=== PATIENT | female | born 1950 | race Caucasian/White ===

== ENCOUNTER 2017-03-18 15:47 | Outpatient (CLI) | payer MEDICARE, OTHER | END 2017-03-18 16:00 | disposition home or self-care (01) | LOC: SLEEP 15:47 | PROVIDERS: ATTEND Nurse Practitioner | DX: G47.10 Hypersomnia, unspecified (principal) ==

== ENCOUNTER → 2017-07-23 | Outpatient (CLI) | payer MEDICARE, OTHER ==
--- NOTE | 2017-07-23 14:54 | Diagnostic Imaging Report ---
Indication: Routine screening. Comparison is made with prior mammogram from 04/15/2006. The current study was also evaluated with a Computer Aided Detection (CAD) system. Scattered parenchymal densities are identified bilaterally. No dominant mass or malignant appearing microcalcifications are seen. The axillae are unremarkable. IMPRESSION: BI-RADS category 1. No mammographic features suspicious for malignancy are identified. ACR BI-RADS Category 1: Negative. Result letter will be mailed to the patient. Note: At least 10% of breast cancer is not imaged by mammography. Dictated by: Dictated on workstation # [id number]
== END ==
LOC: RAD 11:17
PROVIDERS: ATTEND Family Medicine
DX: Z12.31 Encounter for screening mammogram for malignant neoplasm of breast (principal)
CPT/HCPCS: 77067

== ENCOUNTER → 2018-04-02 | Outpatient (CLI) | payer MEDICARE, OTHER ==
--- NOTE | 2018-04-02 12:44 | Diagnostic Imaging Report ---
PROCEDURE: MRI lumbar spine. TECHNIQUE: Multiplanar, multisequence MRI of the lumbar spine was performed without contrast. INDICATION: Low back pain. COMPARISON: There are no prior studies available for comparison. FINDINGS: The T2 sagittal images reveal that there is a grade 1 spondylolisthesis of L4 with respect to L5. There is also desiccation of the disc at this level, although the disc space is fairly well maintained. The thecal sac is narrowed however and the AP diameter of the thecal sac is estimated to be only 7.7 mm. There is also moderate narrowing of the neuroforamen bilaterally at this level. At the L5-S1, there is also focal disc bulge centrally. The disc indents the ventral aspect of the thecal sac and narrows the AP diameter to 10.1 mm. There is no significant neuroforaminal narrowing at this level. There is desiccation of the discs at every other level of the lumbar spine but the disc spaces are fairly well maintained. The thecal sac is generous and there is no evidence for spinal stenosis or nerve root encroachment at any other level. There is no abnormal signal arising from the cord or other vertebral bodies to indicate an acute abnormality. There is no evidence for a paraspinal mass. IMPRESSION: 1. There is a grade 1 spondylolisthesis of L4 with respect to L5. This does result in spinal stenosis at the L4-L5 level as well as moderate narrowing of the neuroforamen bilaterally. 2. There is also a disc bulge centrally at L5-S1. There is borderline central stenosis at this level but there is no encroachment of the nerve roots. 3. The remainder of the lumbar spine is unremarkable for spinal stenosis or nerve root encroachment. 4. There is no sign of an acute bony abnormality or of a cord lesion. Dictated by: Dictated on workstation # [id number]
== END ==
LOC: RAD 10:43
PROVIDERS: ATTEND Family Medicine
DX: M48.061 Spinal stenosis, lumbar region without neurogenic claudication (principal); M43.16 Spondylolisthesis, lumbar region; M99.73 Connective tissue and disc stenosis of intervertebral foramina of lumbar region; M51.26 Other intervertebral disc displacement, lumbar region
CPT/HCPCS: 72148

== ENCOUNTER 2018-06-10 15:21 | Outpatient (RCR) | payer MEDICARE, OTHER | END 2018-07-22 14:06 | disposition home or self-care (01) | PROVIDERS: ATTEND Nurse Practitioner | DX: M54.16 Radiculopathy, lumbar region (principal) ==

== ENCOUNTER 2018-06-12 15:58 | Outpatient (RCR) | payer MEDICARE, OTHER | END 2018-06-19 | disposition home or self-care (01) | LOC: CR3 15:58 | PROVIDERS: ATTEND Family Medicine | DX: Z29.8 Encounter for other specified prophylactic measures (principal) ==

== ENCOUNTER 2018-07-27 16:17 | Outpatient (RCR) | payer MEDICARE, OTHER | END 2018-07-29 | disposition home or self-care (01) | LOC: CR3 16:17 | PROVIDERS: ATTEND Family Medicine | DX: Z29.8 Encounter for other specified prophylactic measures (principal) ==

== ENCOUNTER 2018-08-24 16:04 | Outpatient (RCR) | payer MEDICARE, OTHER | END 2018-09-02 | disposition home or self-care (01) | LOC: CR3 16:04 | PROVIDERS: ATTEND Family Medicine | DX: Z29.8 Encounter for other specified prophylactic measures (principal) ==

== ENCOUNTER → 2019-05-06 | Outpatient (CLI) | payer MEDICARE, OTHER ==
--- NOTE | 2019-05-06 18:23 | Diagnostic Imaging Report ---
INDICATION: Routine screening. COMPARISON: Comparison is made with prior mammogram from 07/23/2017. TECHNIQUE: 2-D and 3-D bilateral screening mammography was performed. The current study was also evaluated with a Computer Aided Detection (CAD) system. 3-D tomosynthesis was also performed and reviewed. FINDINGS: Scattered fibroglandular densities are identified bilaterally. Benign-appearing nodules are noted in both breasts. No spiculated mass or malignant-appearing microcalcifications are seen. Axillae are unremarkable. IMPRESSION: No mammographic features suspicious for malignancy are identified. ACR BI-RADS Category 2: Benign findings. Result letter will be mailed to the patient. Note: At least 10% of breast cancer is not imaged by mammography. Dictated by: Dictated on workstation # [id number]
== END ==
LOC: RAD 10:54
PROVIDERS: ATTEND Family Medicine
DX: Z12.31 Encounter for screening mammogram for malignant neoplasm of breast (principal)
CPT/HCPCS: 77067

== ENCOUNTER 2019-06-17 15:54 | Emergency (ER) | payer MEDICARE, OTHER ==
[~2019-06-17] VITALS: Ht 167 cm; Wt 106.5 kg
[~2019-06-17 15:54] MED LIST: ATOR10TA PO; CEFD300C3 PO; FLUC150T PO; IPRA3AMP31 IH; L.AC1CAP6 PO; MV M PO; PRD10T PO; RT-ALBUINH INH
--- NOTE | 2019-06-17 18:00 | NUR ---
TALKED WITH PT WHO STATES HER EPISODE IS OVER AND SHE IS NOW TALKING IN HER REGULAR VOICE. NOTIFIED OF CONTINUED BUSY ER ET A PROVIDER WOULD BE IN TO SEE HER WHEN THEY COULD.
--- NOTE | 2019-06-17 18:53 | NUR ---
Received report from ADWOA Stephenson at this time to assume care of pt.
--- NOTE | 2019-06-17 18:57 | Diagnostic Imaging Report ---
INDICATION: Dyspnea. PA and lateral views of the chest are obtained with comparison made to previous study of 05/18/2019. FINDINGS: Heart size and pulmonary vascularity are within normal limits, and the lungs are clear, bilaterally. There is asymmetric increased density in the right humeral head. IMPRESSION: No acute abnormality is seen in the chest, although there is increasing density in the right humeral head. If there is pain in this region, consideration could be given to dedicated right humeral exam. Dictated by: Dictated on workstation # [id number]
--- NOTE | 2019-06-17 20:21 | ED Respiratory ---
General Chief Complaint: Respiratory Problems Stated Complaint: CONGESTED,COUGH Nursing Triage Note: DISCHARGED FROM THE HOSPITAL AFTER THANKSGIVING FOR RESP ISSUES. STATES TODAY SHE HAS BEEN MORE SOA AND HER VOICE IS HOARSE. Source: family, old records Exam Limitations: no limitations History of Present Illness Date Seen by Provider: Jun 17, 2019 Time Seen by Provider: 18:04 Initial Comments This 69-year-old woman presents to the emergency room today with complaints of shortness of breath. She went to Dr[facility] and was directed to the emergency room. She reports the episode has now passed. She did use a nebulizer treatment at home. She reports having a foul smell in her nose after coughing up sputum. She has been on multiple rounds of antibiotics and prednisone and the last year. She finished her last round 10-12 days ago. She reports being able to exercise for 40 minutes this morning without difficulty. She denies any chest pain or palpitations. She had an admission to the hospital this fall for a COPD exacerbation. Allergies and Home Medications Allergies Coded Allergies: Fish Containing Products (Verified Allergy, Unknown, Abdominal Pain, 05/18/19) PATIENT REPORTS UPSET STOMACH WHEN EATING FISH OR ANY FISH FOODS CONTAINING FISH PRODUCTS Home Medications Albuterol Sulfate 1 Puff Puff, 2 PUFF INH Q4H PRN for SHORTNESS OF BREATH, (Reported) 1 PUFF = 90 MCG Atorvastatin Calcium 10 Mg Tablet, 10 MG PO HS Prescribed by: FLORI ECKERT on 05/19/19 140 Cefdinir 300 Mg Capsule, 300 MG PO BID, (Reported) 7 DAY SUPPLY FILLED 05-12-19 Fluconazole 150 Mg Tablet, 150 MG PO ONCE Prescribed by: FLORI ECKERT on 05/19/19 140 Ipratropium/Albuterol Sulfate 3 Ml Ampul.neb, 3 ML IH TID Prescribed by: FLORI ECKERT on 05/19/19 140 L.acidoph & Paracasei,B.lactis 1 Each Capsule, 1 CAP PO DAILY, (Reported) Mv-Mn/Folic/Wes/Vit K/B Comp,C 1 Each Tablet, 1 TAB PO DAILY, (Reported) Prednisone 10 Mg Tab, PO UD, (Reported) TAKE 2 TABS 2X DAILY X 2 DAYS THEN TAKE 1 TAB 3X DAILY X 2 DAYS THEN TAKE 1 TAB 2X DAILY X 2 DAYS THEN TAKE 1 TAB DAILY THEREAFTER #20 TABS FILLED 05-17-19 Patient Home Medication List Home Medication List Reviewed: Yes Review of Systems Review of Systems Constitutional: no symptoms reported EENTM: no symptoms reported Respiratory: see HPI Cardiovascular: no symptoms reported Gastrointestinal: no symptoms reported Genitourinary: no symptoms reported : No Musculoskeletal: no symptoms reported Skin: no symptoms reported Psychiatric/Neurological: No Symptoms Reported Hematologic/Lymphatic: No Symptoms Reported Past Wowqotr-Fjvpze-Gvylwd Hx Past Med/Social Hx: Reviewed Nursing Past Med/Soc Hx Patient Social History Alcohol Use: Occasionally Uses Number of Drinks Today: AA Alcohol Beverage of Choice: Beer Recreational Drug Use: No Smoking Status: Former Smoker Type Used: Cigarettes Former Smoker, Quit: May 18, 2014 Recent Foreign Travel: No Contact w/Someone Who Travel: No Recent Infectious Disease Expo: No Recent Hopitalizations: No Immunizations Up To Date PED Vaccines UTD: Yes Date of Pneumonia Vaccine: Apr 23, 2017 Seasonal Allergies Seasonal Allergies: No Past Medical History Surgeries: Yes Adenoidectomy, Appendectomy, Section, Hysterectomy, Tonsillectomy Respiratory: Yes COPD Currently Using CPAP: No Currently Using BIPAP: No Cardiac: No Neurological: No Reproductive Disorders: No 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 oz. kg; 38.00 BMI Method: General Appearance: WD/WN, no apparent distress HEENT: PERRL/EOMI, normal ENT inspection, TMs normal, pharynx normal Neck: normal inspection Respiratory: lungs clear, normal breath sounds, no respiratory distress, no accessory muscle use Cardiovascular: regular rate, rhythm, no edema, no murmur Gastrointestinal: normal bowel sounds, non tender, soft Extremities: no pedal edema Neurologic/Psychiatric: deblocker II-XII nml as tested, no motor/sensory deficits, alert, normal mood/affect, oriented x 3 Skin: normal color, warm/dry Progress/Results/Core Measures Suspected Sepsis Recent Fever Within 48 Hours: No Infection Criteria Present: Suspected New Infection New/Unexplained Altered Menta: No Sepsis Screen: No Definite Risk SIRS Temperature: Pulse: 95 Respiratory Rate: 16 Blood Pressure 114 /77 Mean: 89 Results/Orders My Orders Orders - SHANA CHU MD Chest Pa/Lat (2 View) (06/17/19 18:04) Vital Signs/I&O 06/17/19 06/17/19 16:40 20:27 Temp 36.9 36.9 Pulse 95 95 Resp 16 16 B/P (MAP) 114/77 (89) 114/77 (89) Pulse Ox 98 98 O2 Delivery Room Air Capillary Refill : Less Than 3 Seconds Blood Pressure Mean: 89 Progress Note : Progress Note X-ray was unremarkable. Symptoms had passed. Patient was encouraged to follow- up with a high school band teacher for pulmonary function testing. Diagnostic Imaging Diagonstic Imaging: Xray Plain Films/CT/US/NM/MRI: chest Comments Chest x-ray viewed by me and report reviewed. Patient did not have any musculoskeletal complaints in the right shoulder. See report below: NAME: ALIVIA PATEL [facility] REC#: [id number] PT STATUS: REG ER : 1950 PHYSICIAN: SHANA CHU MD ADMIT DATE: 06/17/19/ER Signed Date of Exam:06/17/19 CHEST PA/LAT (2 VIEW) INDICATION: Dyspnea. PA and lateral views of the chest are obtained with comparison made to previous study of 05/18/2019. FINDINGS: Heart size and pulmonary vascularity are within normal limits, and the lungs are clear, bilaterally. There is asymmetric increased density in the right humeral head. IMPRESSION: No acute abnormality is seen in the chest, although there is increasing density in the right humeral head. If there is pain in this region, consideration could be given to dedicated right humeral exam. Dictated by: Dictated on workstation # [id number] Dict: 06/17/19 1855 Trans: 06/17/19 1900 [id number] Interpreted by: CAN CHRISTENSEN MD Electronically signed by: CAN CHRISTENSEN MD 06/17/19 1900 Departure Impression Primary Impression: Dyspnea Qualified Codes: R06.00 - Dyspnea, unspecified Additional Impression: COPD (chronic obstructive pulmonary disease) Qualified Codes: J44.9 - Chronic obstructive pulmonary disease, unspecified Disposition: 01 HOME, SELF-CARE Condition: Improved Departure-Patient Inst. Decision time for Depature: 20:20 Referrals: CARLITOS PARNELL DO (PCP/Family) Primary Care Physician Patient Instructions: COPD Including Emphysema (DC) Add. Discharge Instructions: Your shortness of breath may be related to an obstructive lung disease such as COPD or asthma. Continue using your albuterol treatments every 4 hours as needed. Talk with Dr. PARNELL about a pulmonology referral for pulmonary function testing. Return to the emergency room if you have worsening symptoms that are not responsive to nebulizer treatments. All discharge instructions reviewed with patient and/or family. Voiced understanding. Copy Copies To 1: CARLITOS PARNELL JOSHUA T MD Jun 17, 2019 20:21
[2019-06-17 20:27] VITALS: BP 114/77
== END 2019-06-17 20:28 | disposition home or self-care (01) ==
LOC: EDUNIT# 15:54 → ER 15:55
DX: J44.9 Chronic obstructive pulmonary disease, unspecified (principal); Z87.891 Personal history of nicotine dependence; Z90.49 Acquired absence of other specified parts of digestive tract; Z90.710 Acquired absence of both cervix and uterus; Z90.89 Acquired absence of other organs
CPT/HCPCS: 71046

== ENCOUNTER → 2020-10-25 | Outpatient (CLI) | payer MEDICARE, OTHER ==
--- NOTE | 2020-10-25 11:13 | Diagnostic Imaging Report ---
INDICATION: Pain in left knee and swelling. TECHNIQUE: Three views of the left knee. CORRELATION STUDY: None. FINDINGS: Very mild joint space narrowing medially with minimal marginal osteophyte formation. Lateral compartment is better preserved. Articular surfaces are smooth. Some narrowing at the patellofemoral compartment with spur-like summation superiorly and inferiorly. There is presence of a small suprapatellar joint effusion. IMPRESSION: Negative for acute bony abnormality of the knee. Mild joint space narrowing, particularly at the patellofemoral compartment. Small suprapatellar joint effusion. Dictated by: Dictated on workstation # [id number]
== END ==
LOC: RAD 10:28
PROVIDERS: ATTEND Family Medicine
DX: M79.672 Pain in left foot (principal); M25.462 Effusion, left knee
CPT/HCPCS: 73562

== ENCOUNTER → 2021-07-17 | Outpatient (CLI) | payer MEDICARE, OTHER ==
--- NOTE | 2021-07-17 14:25 | Diagnostic Imaging Report ---
INDICATION: Routine screening. COMPARISON is made with prior mammograms from 05/06/2019 and 07/23/2017. 2-D and 3-D bilateral screening mammography was performed with CAD. Scattered fibroglandular densities are identified bilaterally. No mass or malignant-appearing microcalcifications are seen. Axillae are unremarkable. IMPRESSION: BI-RADS Category 1 No mammographic features suspicious for malignancy are identified. ACR BI-RADS Category 1: Negative. Result letter will be mailed to the patient. Note: At least 10% of breast cancer is not imaged by mammography. Dictated by: Dictated on workstation # [id number]
== END ==
LOC: RAD 08:15
PROVIDERS: ATTEND Family Medicine
DX: Z12.31 Encounter for screening mammogram for malignant neoplasm of breast (principal)
CPT/HCPCS: 77063; 77067

== ENCOUNTER → 2021-11-16 | Outpatient (CLI) | payer MEDICARE, OTHER ==
--- NOTE | 2021-11-16 09:22 | Diagnostic Imaging Report ---
CLINICAL INDICATION: The patient stepped off a ladder in September of 2021 and has had low back pain. EXAM: MRI of the lumbar spine performed without IV contrast. Sequences include sagittal T2, sagittal T1, sagittal T2 fat-sat, coronal T2, and axial T2. COMPARISON: MRI of the lumbar spine without contrast dated 04/02/2018. FINDINGS: There is a 2.4 cm x 2.5 cm x 2.5 cm (AP x Trans x CC) high T2, low T1 signal circumscribed fluid collection seen posterior to the right L4-L5 facets extending posteriorly into the right posterior paraspinal soft tissue. This is most consistent with a synovial cyst. The patient previously had small synovial cystic changes extending from the right L5-S1 facet region. There is a small degenerative facet effusion involving the right L5-S1 facets. There is no acute lumbar spine fracture. There are hypertrophic spurs seen throughout the lumbar spine and multilevel lower lumbar spine facet arthropathy. There is minimal Modic type I degenerative signal changes anteriorly at the T10-T11 level anteriorly. Multilevel Modic type II degenerative signal changes seen involving the lower thoracic spine and L4-L5 level. L1-L2: There is mild bilateral facet arthropathy. There is no significant central spinal canal or neural foramen narrowing. L2-L3: There is moderate bilateral facet arthropathy. There is no significant central spinal canal or neural foramen narrowing. L3-L4: There is moderate bilateral facet arthropathy. There is no significant central spinal canal or neural foramen narrowing. L4-L5: There is interval progression of significant grade 1 anterolisthesis of L4 on L5 of roughly 7 mm. Previously, the anterolisthesis was 5 mm. There is no pars defect seen. There is severe bilateral facet arthropathy/hypertrophy. There is interval progression of a diffuse disk bulge with moderate loss of disk space height and uncovering the posterior aspect of the disk. There is progression of severe central canal stenosis and moderate to severe bilateral neuroforaminal narrowing. L5-S1: There is interval development of a large left paracentral/left subarticular disk extrusion/herniation which measures 1.1 cm x 1.7 cm x 1.4 cm (AP x Trans x CC) . There is now moderate central canal stenosis. There is interval development of significant encroachment upon the non-exited left S1 nerve root. There is no significant right neuroforaminal narrowing. IMPRESSION: 1: Interval development of a large L5-S1 left paracentral/subarticular disk extrusion/herniation with moderate central canal stenosis and significant encroachment upon the non-exited left S1 nerve root. 2: There is interval progression of grade 1 anterolisthesis of L4 on L5 with progression of diffuse disk bulge. There is severe central canal stenosis which has progressed and moderate to severe bilateral neural foramen narrowing which has progressed. 3: There is interval increased size of likely synovial cyst extending from the right L4-L5 facet region extending into the posterior paraspinal lumbar soft tissue. Dictated by: Dictated on workstation # [id number]
== END ==
LOC: RAD 07:28
PROVIDERS: ATTEND Family Medicine
DX: M48.07 Spinal stenosis, lumbosacral region (principal); M43.16 Spondylolisthesis, lumbar region; M71.38 Other bursal cyst, other site; M51.17 Intervertebral disc disorders with radiculopathy, lumbosacral region
CPT/HCPCS: 72148

== ENCOUNTER 2022-04-17 16:00 | Outpatient (RCR) | payer MEDICARE, OTHER | END 2022-04-22 | disposition home or self-care (01) | PROVIDERS: ATTEND Neurological Surgery | DX: R20.2 Paresthesia of skin (principal); Z98.890 Other specified postprocedural states ==

== ENCOUNTER 2022-05-21 15:20 | Outpatient (RCR) | payer MEDICARE, OTHER | END 2022-05-22 | disposition home or self-care (01) | PROVIDERS: ATTEND Neurological Surgery | DX: R20.2 Paresthesia of skin (principal) ==

== ENCOUNTER 2022-05-24 08:24 | Outpatient (RCR) | payer MEDICARE, OTHER | END 2022-05-24 09:14 | disposition home or self-care (01) | PROVIDERS: ATTEND Neurological Surgery | DX: R20.2 Paresthesia of skin (principal); Z90.89 Acquired absence of other organs ==